=== PATIENT | female | born 1950 | race Caucasian/White ===

== ENCOUNTER → 2020-01-07 08:55 | Outpatient (CLI) | payer MEDICARE, OTHER, SELFPAY ==
--- NOTE | ~2020-01-07 | XR_ITS ---
XR hand RT min 3V DATE: 01/07/2020 09:09 INDICATION: Osteoarthritis TECHNIQUE: 3 views of right hand COMPARISON: None FINDINGS: Osteoarthritic changes are noted at multiple joints including particularly the first throug h fourth metacarpophalangeal joints and multiple interphalangeal joints, especially at the first thro ugh third DIP joints. No fracture or dislocation, periosteal reaction or bone destruction. No erosive changes are evident. IMPRESSION: Polyarticular osteoarthritis Reviewed, dictated and finalized at location A.
== END ==
PROVIDERS: PCP Nurse Practitioner Adult Health; Visit Provider Nurse Practitioner Adult Health
DX: M19.041 Primary osteoarthritis, right hand (principal)
CPT/HCPCS: 73130

== ENCOUNTER 2020-01-17 08:20 | Outpatient (CLI) | payer MEDICARE, OTHER, SELFPAY ==
--- NOTE | ~2020-01-17 | MM_ITS ---
EXAMINATION: MM screening jan BI w bradley HISTORY: Screening mammogram TECHNIQUE: Craniocaudal and mediolateral oblique 3-D tomosynthesis images were obtained and synthetic 2-D images were generated. CAD analysis was submitted and interpreted. COMPARISON: 01/03/2019, 12/16/2017, 12/14/2016 bilateral digital screening mammogram examinations BREAST PARENCHYMAL COMPOSITION: The breasts are almost entirely fatty. FINDINGS: There is no evidence of suspicious mass, calcification, or architectural distortion to sugg est malignancy in either breast. There has been no suspicious interval change. IMPRESSION: 1. No mammographic evidence of malignancy. 2. Recommend routine screening mammography in one year. BI-RADS Category 1: Negative Reviewed, dictated and finalized at location A.
== END 2020-01-17 08:21 | disposition home or self-care (01) ==
LOC: ANHIMG 08:23
PROVIDERS: PCP Nurse Practitioner Adult Health; Visit Provider Nurse Practitioner Obstetrics & Gynecology
DX: Z12.31 Encounter for screening mammogram for malignant neoplasm of breast (principal)
CPT/HCPCS: 77063; 77067

== ENCOUNTER 2020-03-01 02:01 | Outpatient (CLI) | payer MEDICARE, OTHER, SELFPAY ==
[2020-03-01 17:58] LABS: SARS-CoV-2 RNA PCR Negative
== END 2020-03-01 02:02 | disposition home or self-care (01) ==
LOC: ANHCOVIDDT 02:01
PROVIDERS: PCP Nurse Practitioner Adult Health; Visit Provider Obstetrics & Gynecology
DX: Z01.812 Encounter for preprocedural laboratory examination (principal); Z20.828 Contact with and (suspected) exposure to other viral communicable diseases
CPT/HCPCS: 87635; C9803; U0003

== ENCOUNTER 2020-03-01 10:08 | Outpatient (CLI) | payer MEDICARE, SELFPAY ==
[2020-03-01 10:40] LABS: Anion Gap 10 mmol/L (8-16); Blood Urea Nitrogen 19 mg/dL (7-17); Calcium 10.4 mg/dL (8.4-10.2); Carbon Dioxide 31 mmol/L (22-30); Chloride 103 mmol/L (98-107); Estimated Glomerular Filt Rate > 60; Glucose 112 mg/dL (65-105); Potassium 4.1 mmol/L (3.4-5.0); Sodium 144 mmol/L (137-145)
== END 2020-03-01 10:09 | disposition home or self-care (01) ==
LOC: ANHLAB 10:13
PROVIDERS: PCP Nurse Practitioner Adult Health; Visit Provider Anesthesiology
DX: Z01.818 Encounter for other preprocedural examination (principal)
CPT/HCPCS: 36415; 80048; 87635; C9803; U0003

== ENCOUNTER 2020-03-04 00:39 | Day surgery (SDC) | payer MEDICARE, SELFPAY ==
[2020-02-27 14:06] VITALS: BMI 35.4
[2020-03-04 10:44] VITALS: BP 143/57; PULSE 57; RESP 20; TEMP 36.8; O2SAT 97
[2020-03-04 11:10] LABS: Glucose Point of Care 108 (65-105)
[2020-03-04] MEDS: ACETAMINOPHEN 500 MG TABLET 1000 MG PO (11:13)
[2020-03-04] MEDS: LACTATED RINGERS 1,000 ML 30 ML IV CONT (11:14)
--- NOTE | 2020-03-04 11:28 | WPDANESEPPF ---
Anes - Initial Pre Proc Eval Procedure: Operation Date: 03/04/20 12:30 Proposed Procedures p Hysteroscopy, Dilation And Curettage, Polypectomy - Kamari Sanchez MD Date/Time: 03/04/20 11:28 Surgeon: Kamari Sanchez MD Pre Op Diagnosis: Postmenopausal Bleeding/ Cervical Polyp Patient Data Age: 70 Gender: F Height: 5 ft 5 in Weight: 95.2 kg Last Vital Signs Temp 36.8 C 03/04/20 10:44 Pulse 57 L 03/04/20 10:44 Resp 20 03/04/20 10:44 BP 143/57 H 03/04/20 10:44 Pulse Ox 97 03/04/20 10:44 Allergies Allergy/AdvReac Type Severity Reaction Status Date / Time Penicillins Allergy Mild Rash Verified 03/04/20 10:53 Home Medications Medication Instructions Recorded Confirmed Type Lactobac 40-Bifido 3-S.thermop 1.5 cap PO DAILY 02/27/20 03/04/20 History [Probiotic] Ocuvite Adult 50 Plus 1 tab/day DAILY 02/27/20 03/04/20 History allopurinol 100 mg PO BID 02/27/20 03/04/20 History amlodipine 5 mg PO HS 02/27/20 03/04/20 History ascorbic acid (vitamin C) [Vitamin 1 g PO BID 02/27/20 03/04/20 History C] aspirin [Aspirin Low Dose] 81 mg PO DAILY 02/27/20 03/04/20 History atorvastatin 10 mg PO HS 02/27/20 03/04/20 History calcium polycarbophil [FiberCon] 1,250 mg PO QAM 02/27/20 03/04/20 History cholecalciferol (vitamin D3) 125 mcg PO DAILY 02/27/20 03/04/20 History glimepiride 1 mg PO QAM 02/27/20 03/04/20 History levothyroxine 75 mcg PO DAILY 02/27/20 03/04/20 History losartan 50 mg PO DAILY 02/27/20 03/04/20 History magnesium 500 mg PO BID 02/27/20 03/04/20 History metformin 500 mg PO BID 02/27/20 03/04/20 History omega 9-uer-zvz-fish oil [Fish Oil] 1 cap PO BID 09/30/20 10/06/20 History tramadol 50 mg PO QAM 02/27/20 03/04/20 History triamterene-hydrochlorothiazid 1 cap PO QAM 02/27/20 03/04/20 History vitamin B complex 1 tablet PO DAILY 02/27/20 03/04/20 History Laboratory Tests 03/04/20 11:06 POC Capillary Glucose 108 mg/dl mg/dl (65-105) Patient hx anesthesia problems: none Family hx anesthesia problems: none PMFSH Past Medical History Medical History (Updated 03/04/20 @ 11:29 by Jordon Viveros MD) Diabetes HTN (hypertension) Hyperlipidemia Hypothyroidism Obesity DARIANA (obstructive sleep apnea) Social History Social History Smoking status: Never smoker Alcohol intake: former Substance use: never Living arrangements: with family Spiritual care concerns: No Anes - Eval Final PreProcedure Day of Procedure 03/04/20 11:28 Patient weight: obese Heart: regular rate and rhythm Lungs: clear to auscultation Airway: Mallampati scale class II Neurological: alert and oriented Last oral intake: >/= 8 hours Emergent: no Anesthetic plan: proceed Anesthesia type and monitoring: general GIVS and standard monitoring Informed Consent: The patient's anesthetic plan and its attendant risks and benefits were discussed with the patient/family/POA. Questions were solicited and answers provided to the satisfaction of the patient/family/POA.
--- NOTE | 2020-03-04 12:47 | WPDHPUPDATE1 ---
History and Physical Update Update Date/Time: 03/04/20 12:47 History and Physical has been reviewed, including an updated exam of the patient. There are NO changes in the patient's condition. Risks, benefits, and alternatives have been discussed and questions answered. Patient agrees to proceed with procedure.
[2020-03-04] MEDS: ceFAZolin 2 GM/D5W 50 ML 2 GM/50 ML BAG IVPB (12:57)
--- NOTE | 2020-03-04 13:30 | SUR.OPER ---
1900ml ns in, 1500ml ml out. aware
[2020-03-04 13:35] VITALS: BP 129/57; PULSE 49; RESP 18; O2SAT 94
--- NOTE | 2020-03-04 13:46 | PM.PROC ---
Procedure Note - Detailed Date of procedure: 03/04/20 Pre-op diagnosis: Postmenopausal Bleeding/ Cervical Polyp Abnormal uterine bleeding Post-op diagnosis: same Procedure performed: Hysteroscopy D&C , polypectomy Description of procedure: The patient was taken the operating room. She was prepped and draped in the dorsal lithotomy position after induction of mac anesthesia. A speculum was placed in the vagina. The cervix grasped with a tenaculum. The cervix was injected at 3 and 9:00 a.m. with 1% lidocaine. Cervix was dilated up to 1 cm. The hysteroscope was inserted the intrauterine cavity and the above findings were noted. Hysteroscopic scissors were used to cut the base of a large endometrial polyp. When the polyp was freed it was grasped with polyp forceps. A medium-size curette was then used to curettage all surfaces within the endometrial cavity. The endometrial curettings were collected on a Telfa. There were submitted to the pathology department. Hysteroscope was reinserted the intrauterine cavity to re-examine the endometrial surfaces. The hysteroscope was withdrawn. The tenaculum was removed. The speculum was removed. The patient tolerated the procedure well. She was taken recovery room stable condition. Sponge lap needle counts were correct x2. Anesthesia: MAC Surgeon: Kamari Sanchez MD Estimated blood loss (mL): 75 Drains: No Packing: No Pathology: yes Complications: No immediate complications Condition: stable Disposition: PACU Findings: large endometrial polyp. Appears benign, no apparent invasive malignant process. There was normal appearing vulva vagina and cervix.
[2020-03-04 14:00] VITALS: BP 151/53; PULSE 56; RESP 20
[2020-03-04 14:30] VITALS: BP 163/64; PULSE 48; RESP 18
== END 2020-03-04 14:42 | disposition home or self-care (01) ==
PROVIDERS: PCP Nurse Practitioner Adult Health; Visit Provider Obstetrics & Gynecology
PROC: 0U5B8ZZ Destruction of Endometrium, Via Natural or Artificial Opening Endoscopic (ICD-10-PCS; CPT 58563; principal; 2020-03-04 12:30)
DX: N95.0 Postmenopausal bleeding (principal); N93.9 Abnormal uterine and vaginal bleeding, unspecified; N84.0 Polyp of corpus uteri; I10 Essential (primary) hypertension; E11.9 Type 2 diabetes mellitus without complications; E78.5 Hyperlipidemia, unspecified; E03.9 Hypothyroidism, unspecified; G47.33 Obstructive sleep apnea (adult) (pediatric); E66.9 Obesity, unspecified; Z68.34 Body mass index [BMI] 34.0-34.9, adult; Z79.82 Long term (current) use of aspirin; Z79.84 Long term (current) use of oral hypoglycemic drugs
CPT/HCPCS: 58558; 88305; A9270; J0690; J1100; J2250; J2405; J2704; J3010; J7120

== ENCOUNTER 2020-03-20 06:53 | Outpatient (NON) | payer MEDICARE, OTHER, SELFPAY ==
[2020-03-20 21:43] LABS: SARS-CoV-2 RNA PCR Negative
== END 2020-03-20 06:54 ==
PROVIDERS: PCP Nurse Practitioner Adult Health; Visit Provider Nurse Practitioner Adult Health
DX: Z20.828 Contact with and (suspected) exposure to other viral communicable diseases (principal)
CPT/HCPCS: 87635; C9803; U0003

== ENCOUNTER 2021-01-28 09:31 | Outpatient (CLI) | payer MEDICARE, SELFPAY ==
--- NOTE | ~2021-01-28 | MM_ITS ---
EXAMINATION: MM screening jan BI w bradley HISTORY: Screening TECHNIQUE: Craniocaudal and mediolateral oblique 3-D tomosynthesis images were obtained and synthetic 2-D images were generated. CAD analysis was submitted and interpreted. COMPARISON: Comparison to multiple prior studies sequentially, with oldest reviewed study dated 06/2015. BREAST PARENCHYMAL COMPOSITION: There are scattered areas of fibroglandular density. FINDINGS: There is no evidence of suspicious mass, calcification, or architectural distortion to sugg est malignancy in either breast. There has been no suspicious interval change. IMPRESSION: 1. No mammographic evidence of malignancy. 2. Recommend routine screening mammography in one year. BI-RADS Category 1: Negative Reviewed, dictated and finalized at location A.
== END 2021-01-28 09:32 | disposition home or self-care (01) ==
LOC: ANHIMG 09:32
PROVIDERS: PCP Nurse Practitioner Adult Health; Visit Provider Nurse Practitioner Obstetrics & Gynecology
DX: Z12.31 Encounter for screening mammogram for malignant neoplasm of breast (principal)
CPT/HCPCS: 77063; 77067

== ENCOUNTER 2021-03-23 03:01 | Day surgery (SDC) | payer MEDICARE, OTHER, SELFPAY ==
[2021-03-19 10:53] VITALS: BMI 34.4
--- NOTE | 2021-03-22 12:15 | PM.IMHP ---
H&P: HPI History of Present Illness Date/Time: 03/22/21 12:15 71-year-old female admitted for hysteroscopy and dilatation curettage. She has known multiple fibroids and had postmenopausal bleeding. The endometrium could not be completely seen with ultrasound. She also suffers from diabetes and obesity and assess a high risk candidate for precancerous or cancerous change of the uterus. Risks and benefits reviewed Chief Complaint: Postmenopausal bleeding Review of Systems Review of Systems: All systems reviewed & are unremarkable except as noted in HPI and below PMFSH Past Medical History Medical History Diabetes HTN (hypertension) Hyperlipidemia Hypothyroidism Obesity DARIANA (obstructive sleep apnea) Social History Social History Smoking status: Never smoker Second hand tobacco smoke exposure: No Additional smoking assessment comments: DENIES ALL FORMS OF TOBACCO USE Alcohol intake: former Substance use: never Substance use type: does not use Living arrangements: with family Spiritual care concerns: No Meds Home Medications and Allergies Home Medications Medication Instructions Recorded Confirmed Type Ocuvite Adult 50 Plus 1 tab/day BID 02/27/20 03/19/21 History allopurinol 100 mg PO BID 02/27/20 03/19/21 History amlodipine 5 mg PO HS 02/27/20 03/19/21 History aspirin [Aspirin Low Dose] 81 mg PO DAILY 02/27/20 03/19/21 History atorvastatin 10 mg PO HS 02/27/20 03/19/21 History calcium polycarbophil [FiberCon] 1,250 mg PO QAM 02/27/20 03/19/21 History cholecalciferol (vitamin D3) 125 mcg PO DAILY 02/27/20 03/19/21 History glimepiride 1 mg PO QAM 02/27/20 03/19/21 History levothyroxine 75 mcg PO QAM 02/27/20 03/19/21 History losartan 50 mg PO QAM 02/27/20 03/19/21 History metformin 500 mg PO BID 02/27/20 03/19/21 History omega 9-brv-qpa-fish oil [Fish Oil] 1 cap PO BID 02/27/20 03/19/21 History tramadol 50 mg PO QAM PRN 02/27/20 03/19/21 History triamterene-hydrochlorothiazid 1 cap PO QAM 02/27/20 03/19/21 History Allergies Allergy/AdvReac Type Severity Reaction Status Date / Time Penicillins Allergy Mild Rash Verified 03/19/21 10:47 Exam Const: General: no acute distress Eyes: General: appearance normal, both eyes and all related structures Neck: Neck: supple and no JVD Thyroid: thyroid normal Resp: Effort & Inspection: normal respiratory effort Auscultation: clear to auscultation bilaterally Cardio: Rate: regular rate Rhythm: regular rhythm GI: Inspection: non-distended GI Palp: Yes Soft to palpation, No Tenderness to palpation present (GI) and No Guarding due to palpation present (GI) Auscultation: normal bowel sounds : External Female Exam: normal external appearance Speculum Exam - Cervix: normal appearance of the cervix Bimanual exam- vagina & uterus: enlarged Bimanual Exam- Adnexa, other: normal adnexae Skin: General skin exam: no rashes or lesions noted Extrem: General: normal to inspection and no edema Psych: Mental Status: mental status grossly normal Affect: normal affect Assessment and Plan Additional Plan Impression: Postmenopausal bleeding Plan: Hysteroscopy/dilatation curettage
[2021-03-23] MEDS: LACTATED RINGERS 1,000 ML 30 ML IV CONT (06:59)
[2021-03-23] MEDS: ACETAMINOPHEN 500 MG TABLET 1000 MG PO (07:00)
--- NOTE | 2021-03-23 07:10 | WPDANESEPPF ---
Anes - Initial Pre Proc Eval Procedure: Operation Date: 03/23/21 07:30 Proposed Procedures p Hysteroscopy Dilation and Curettage - Jordon Patrick MD Date/Time: 03/23/21 07:10 Surgeon: Jordon Patrick MD Pre Op Diagnosis: Post Menopausal Bleeding Patient Data Age: 71 Gender: F Height: 1.66 m Weight: 95.45 kg Allergies Allergy/AdvReac Type Severity Reaction Status Date / Time Penicillins Allergy Mild Rash Verified 03/19/21 10:47 Home Medications Medication Instructions Recorded Confirmed Type Ocuvite Adult 50 Plus 1 tab/day BID 02/27/20 03/19/21 History allopurinol 100 mg PO BID 02/27/20 03/19/21 History amlodipine 5 mg PO HS 02/27/20 03/19/21 History aspirin [Aspirin Low Dose] 81 mg PO DAILY 02/27/20 03/19/21 History atorvastatin 10 mg PO HS 02/27/20 03/19/21 History calcium polycarbophil [FiberCon] 1,250 mg PO QAM 02/27/20 03/19/21 History cholecalciferol (vitamin D3) 125 mcg PO DAILY 02/27/20 03/19/21 History glimepiride 1 mg PO QAM 02/27/20 03/19/21 History levothyroxine 75 mcg PO QAM 02/27/20 03/19/21 History losartan 50 mg PO QAM 02/27/20 03/19/21 History metformin 500 mg PO BID 02/27/20 03/19/21 History omega 7-pbb-zmn-fish oil [Fish Oil] 1 cap PO BID 02/27/20 03/19/21 History tramadol 50 mg PO QAM PRN 02/27/20 03/19/21 History triamterene-hydrochlorothiazid 1 cap PO QAM 02/27/20 03/19/21 History Patient hx anesthesia problems: none Family hx anesthesia problems: none Results Review: All pre-operative results and documents have been reviewed as part of the pre-operative evaluation. [facility] Past Medical History Medical History Diabetes HTN (hypertension) Hyperlipidemia Hypothyroidism Obesity DARIANA (obstructive sleep apnea) Surgical History Surgical History (Updated 03/23/21 @ 07:11 by Jordon Viveros MD) History of cholecystectomy History of total knee arthroplasty Social History Social History Smoking status: Never smoker Second hand tobacco smoke exposure: No Additional smoking assessment comments: DENIES ALL FORMS OF TOBACCO USE Alcohol intake: former Substance use: never Substance use type: does not use Living arrangements: with family Spiritual care concerns: No Anes - Eval Final PreProcedure Day of Procedure 03/23/21 07:10 Patient weight: obese Heart: regular rate and rhythm Lungs: clear to auscultation Airway: Mallampati scale class II Neurological: alert and oriented Last oral intake: >/= 8 hours ASA classification: III Emergent: no Anesthetic plan: proceed Anesthesia type and monitoring: general GIVS and standard monitoring Results Review: All pre-operative results and documents have been reviewed as part of the pre-operative evaluation. Informed Consent: The patient's anesthetic plan and its attendant risks and benefits were discussed with the patient/family/POA. Questions were solicited and answers provided to the satisfaction of the patient/family/POA.
[2021-03-23 07:13] LABS: Hematocrit 39.3 % (37.0-47.0); Hemoglobin 13.5 g/dL (12.0-15.0)
[2021-03-23 07:18] VITALS: BP 143/49; PULSE 48; RESP 18; TEMP 37.1; O2SAT 94
--- NOTE | 2021-03-23 07:22 | WPDHPUPDATE1 ---
History and Physical Update Update Date/Time: 03/23/21 07:22 History and Physical has been reviewed, including an updated exam of the patient. There are NO changes in the patient's condition. Risks, benefits, and alternatives have been discussed and questions answered. Patient agrees to proceed with procedure.
[2021-03-23 07:25] LABS: Anion Gap 11 mmol/L (8-16); Blood Urea Nitrogen 18 mg/dL (7-17); Calcium 9.7 mg/dL (8.4-10.2); Carbon Dioxide 23 mmol/L (22-30); Chloride 106 mmol/L (98-107); Estimated CRCL calculation 99 ml/min; Estimated Glomerular Filt Rate > 60; Glucose 143 mg/dL (65-110); Sodium 140 mmol/L (137-145)
[2021-03-23] MEDS: KETOROLAC 15 MG/ML VIAL (*BKC) IV PUSH (07:43)
--- NOTE | 2021-03-23 07:47 | W.PM.PROC2 ---
Procedure Note - Detailed Date of Procedure 03/23/21 Pre-op Diagnosis Post Menopausal Bleeding Post-op Diagnosis same Procedure Performed Hysteroscopy/dilatation and curettage Surgeon Jordon Patrick MD Anesthesia MAC and local Indications This is a 71-year-old female with some light postmenopausal bleeding and suspected fibroids. Findings Mildly irregular uterine lining but no evidence of polyp or pathology seen thin atrophic tissue was seen. Description of Procedure Patient was prepped and draped in the normal sterile fashion placed in the dorsal lithotomy position. Under excellent IV sedation weighted speculum was placed in posterior fornix vagina. Anterior lip of the cervix grasped with single-tooth tenaculum and 2.5cc of 1% xylocaine anesthesia placed at 2, 4, 8, 10:00 a.m. of the cervix. Uterus sounded to 8cm. Serial dilatation with fragmented dilators performed followed by passage of the 5mm visualizing hysteroscope. Normal saline was used as visualizing medium. Each fallopian tube os could be seen easily. The uterine lining was somewhat irregular but no evidence of fibroids polyps or other pathology was seen. The tissue appeared very atrophic as expected for her age. The uterus was scraped over the entire 360? removing very minimal to no tissue. The instruments removed. Blood loss estimated at5cc. All sponge, needle, instrument counts were correct. There were no immediate complications Estimated Blood Loss 5 Drains No Pathology yes Complications No immediate complications Condition stable Disposition PACU
[2021-03-23 07:51] VITALS: BP 98/35; PULSE 53; RESP 12; O2SAT 93
[2021-03-23 08:07] LABS: Glucose Point of Care 122 mg/dl (65-105)
[2021-03-23 08:20] VITALS: BP 141/44; PULSE 45
--- NOTE | 2021-03-23 08:37 | SUR.PHASEII ---
Patient is ok to resume aspirin right away per Dr. Patrick.
[2021-03-23 08:45] VITALS: BP 144/43; PULSE 44
== END 2021-03-23 08:55 | disposition home or self-care (01) ==
PROVIDERS: Anesthesiology; PCP Nurse Practitioner Adult Health; Visit Provider Obstetrics & Gynecology
PROC: 0U5B8ZZ Destruction of Endometrium, Via Natural or Artificial Opening Endoscopic (ICD-10-PCS; CPT 58563; principal; 2021-03-23 07:30)
DX: N95.0 Postmenopausal bleeding (principal); E03.9 Hypothyroidism, unspecified; Z79.82 Long term (current) use of aspirin; Z79.84 Long term (current) use of oral hypoglycemic drugs; E11.9 Type 2 diabetes mellitus without complications; I10 Essential (primary) hypertension; E78.5 Hyperlipidemia, unspecified; G47.33 Obstructive sleep apnea (adult) (pediatric); E66.9 Obesity, unspecified; Z68.35 Body mass index [BMI] 35.0-35.9, adult
CPT/HCPCS: 58558; 36415; 80048; 82948; 85014; 85018; 88305; A9270; J1100; J1885; J2250; J2405; J2704; J7030; J7120

== ENCOUNTER 2022-02-23 10:22 | Outpatient (CLI) | payer MEDICARE, SELFPAY ==
--- NOTE | ~2022-02-23 | MM_ITS ---
EXAMINATION: MM screening jan BI w bradley HISTORY: Screening mammogram TECHNIQUE: Craniocaudal and mediolateral oblique 3-D tomosynthesis images were obtained and synthetic 2-D images were generated. CAD analysis was submitted and interpreted. COMPARISON: 01/28/2021, 01/17/2020, 01/03/2019 bilateral screening mammogram examinations BREAST PARENCHYMAL COMPOSITION: The breasts are almost entirely fatty. FINDINGS: There is no evidence of suspicious mass, calcification, or architectural distortion to sugg est malignancy in either breast. There has been no suspicious interval change. IMPRESSION: 1. No mammographic evidence of malignancy. 2. Recommend routine screening mammography in one year. BI-RADS Category 1: Negative Reviewed, dictated and finalized at location A.
== END 2022-02-23 10:23 | disposition home or self-care (01) ==
PROVIDERS: PCP Nurse Practitioner Adult Health; Visit Provider Obstetrics & Gynecology
DX: Z12.31 Encounter for screening mammogram for malignant neoplasm of breast (principal)
CPT/HCPCS: 77063; 77067

== ENCOUNTER → 2023-07-20 14:42 | Outpatient (CLI) | payer MEDICARE, SELFPAY ==
--- NOTE | ~2023-07-20 | DEXA_ITS ---
Bone Density Report Name: IVANNA GORMAN Age: 73 Sex: Female Ethnicity: White Date of : 1950 Indication: postmenopausal; screening for osteoporosis; prior fracture; Referring Provider: JOSE, JOSE Study: Bone densitometry was performed. Exam Date: July 20, 2023 Accession number: [id number] Bone Density: Region BMD T-score Z-score Classification AP Spine (L1, L2, L3) 1.146 1.2 3.4 Normal Femoral Neck (Left) 0.678 -1.5 0.4 Osteopenia Total Hip (Left) 0.941 0.0 1.7 Normal Femoral Neck (Right) 0.704 -1.3 0.7 Osteopenia Total Hip (Right) 0.948 0.0 1.7 Normal Total Hip Mean 0.945 0.0 1.7 Normal World Health Organization criteria for BMD impression classify patients as: Normal (T-score at or above -1.0), Osteopenia (T-score between -1.0 and -2.5), or Osteoporosis (T-score at or below -2.5). 10-year Fracture Risk(1): Major Osteoporotic Fracture 16% Hip Fracture 2.5% Reported Risk Factors: [place] (), Neck BMD=0.678, BMI=35.8, previous fracture (1) FRAX(R) Version 3.08. Fracture probability calculated for an untreated patient. Fracture probability may be lower if the patient has received treatment. Previous Exams: Region Exam Age BMD T-score BMD Change BMD Change Date g/cm2 vs Baseline vs Previous AP Spine(L1, L2, L3) 07/20/2023 73 1.146 1.2 0.055* 0.011 11/13/2018 68 1.135 1.1 0.044* 0.044* 11/19/2015 65 1.091 0.7 Total Hip(Left) 07/20/2023 73 0.941 0.0 -0.026 -0.001 11/13/2018 68 0.942 0.0 -0.025 -0.025 11/19/2015 65 0.967 0.2 Total Hip(Right) 07/20/2023 73 0.948 0.0 -0.003 0.023 11/13/2018 68 0.925 -0.1 -0.025 -0.025 11/19/2015 65 0.951 0.1 *Denotes significance at 95% confidence level, LSC for AP Spine = 0.022 g/cm2, LSC for Total Hip = 0.027 g/cm2 Clinical Information Provided by Patient: Has had a low trauma fracture Has used the following medications: Vitamin D, Calcium, SYNTHROID Patient maximum height was 66.0 Menopause Age: 50 No regular weight bearing exercise Onset of menses at age 12 Number of children 2 Impression: The patient has low bone mass, based on the Left Femoral Neck T-score. The patient has an estimated ten-year risk of hip fracture of 2.5% and an estimated ten-year risk of major fracture of 16%, based on the WHO FRAX al
== END ==
PROVIDERS: PCP Family Medicine; Visit Provider Nurse Practitioner
DX: Z78.0 Asymptomatic menopausal state (principal); Z13.820 Encounter for screening for osteoporosis; M85.852 Other specified disorders of bone density and structure, left thigh; M85.851 Other specified disorders of bone density and structure, right thigh
CPT/HCPCS: 77080

== ENCOUNTER 2023-08-03 12:42 | Outpatient (CLI) | payer MEDICARE, SELFPAY ==
--- NOTE | ~2023-08-03 | MM_ITS ---
EXAMINATION: MM screening jan BI w bradley HISTORY: Screening mammogram TECHNIQUE: Craniocaudal and mediolateral oblique 3-D tomosynthesis images were obtained and synthetic 2-D images were generated. CAD analysis was submitted and interpreted. COMPARISON: 02/23/2022, 01/28/2021 bilateral screening mammogram examinations BREAST PARENCHYMAL COMPOSITION: The breasts are almost entirely fatty. FINDINGS: There is no evidence of suspicious mass, calcification, or architectural distortion to sugg est malignancy in either breast. There has been no suspicious interval change. IMPRESSION: 1. No mammographic evidence of malignancy. 2. Recommend routine screening mammography in one year. BI-RADS Category 1: Negative Reviewed, dictated and finalized at location A. [employer]
== END 2023-08-03 12:43 ==
PROVIDERS: PCP Family Medicine; Visit Provider Nurse Practitioner
DX: Z12.31 Encounter for screening mammogram for malignant neoplasm of breast (principal)
CPT/HCPCS: 77063; 77067

== ENCOUNTER 2024-02-21 08:06 | Outpatient (CLI) | payer MEDICARE, SELFPAY ==
--- NOTE | ~2024-02-21 | US_ITS ---
Limited Abdominal Sonogram: Real-time sonographic imaging of the right upper quadrant was performed. Clinical History: Metabolic dysfunction Findings: The liver appears echogenic, with no evidence of mass lesion or bile duct dilatation. Main portal vein demonstrates normal direction of flow. The gallbladder is absent, compatible prior doyle cystectomy. The common bile duct measures 4 mm. The visualized pancreas, aorta, and IVC are unremark able. Impression: Diffuse fatty infiltration of the liver. Status post cholecystectomy. Reviewed, dictated and finalized at location . Impression: Diffuse fatty infiltration of the liver. Status post cholecystectomy.
== END 2024-02-21 08:07 | disposition home or self-care (01) ==
LOC: MICIMG 08:08
PROVIDERS: PCP Student in an Organized Health Care Education/Training Program; Visit Provider Internal Medicine Gastroenterology
DX: K75.81 Nonalcoholic steatohepatitis (NASH) (principal); Z90.49 Acquired absence of other specified parts of digestive tract
CPT/HCPCS: 76705

== ENCOUNTER 2024-10-17 13:16 | Outpatient (CLI) | payer BC, MEDICARE, SELFPAY ==
--- NOTE | ~2024-10-17 | MM_ITS ---
EXAMINATION: MM screening jan BI w bradley HISTORY: Screening TECHNIQUE: Craniocaudal and mediolateral oblique 3-D tomosynthesis images were obtained and synthetic 2-D images were generated. CAD analysis was submitted and interpreted. COMPARISON: Comparison to multiple prior studies sequentially, with oldest reviewed study dated 12/16. BREAST PARENCHYMAL COMPOSITION: There are scattered areas of fibroglandular density. FINDINGS: There is no evidence of suspicious mass, calcification, or architectural distortion to sugg est malignancy in either breast. There has been no suspicious interval change. IMPRESSION: 1. No mammographic evidence of malignancy. 2. Recommend routine screening mammography in one year. BI-RADS Category 1: Negative Reviewed, dictated and finalized at location B.
== END 2024-10-17 13:17 | disposition home or self-care (01) ==
PROVIDERS: PCP Student in an Organized Health Care Education/Training Program; Visit Provider Nurse Practitioner
DX: Z12.31 Encounter for screening mammogram for malignant neoplasm of breast (principal)
CPT/HCPCS: 77063; 77067